=== PATIENT | female | born 1950 | race Caucasian/White ===

== ENCOUNTER 2016-09-16 07:50 | Day surgery (SDC) | payer OTHER, MEDICARE ==
[~2016-09-16 07:50] MED LIST: LIDOCAINE 1% 5 ML SDV ID PRN; LIDOCAINE 1% 5 ML SDV ONE; LR 1,000 ML IV ONE; SILVER NITRATE APPLICATOR 1 APPL TP ONE
[2016-09-16] MEDS ORDERED: MIDAZOLAM 2 MG/2 ML VIAL ONE (10:16)
[2016-09-16] MEDS ORDERED: fentaNYL 100 MCG/2 ML INJ ONE (10:22)
[2016-09-16] MEDS ORDERED: ONDANSETRON 4 MG/2 ML VIAL ONE (10:24)
[2016-09-16] MEDS ORDERED: ESMOLOL HCL 100 MG/10 ML VIAL IV ONE (10:48)
--- NOTE | 2016-09-16 15:48 | GOP ---
[f rep st] OPERATIVE REPORT DATE OF OPERATION: 09/16/2016 SURGEON: Sandhya Crain MD ANESTHESIA: General with LMA. ANESTHESIOLOGIST: Darrius Fan PREOPERATIVE DIAGNOSIS: 1. Postmenopausal bleeding. 2. Thickened endometrial stripe suggestive of endometrial polyp. POSTOPERATIVE DIAGNOSIS: Endometrial fibroids. PROCEDURE PERFORMED: Diagnostic hysteroscopy with hysteroscopic resection of uterine fibroids. FINDINGS: There were 3 very prominent fibroids, 1 arising from the posterior fundal wall, 1 from the left uterine wall, and 1 from the fundal wall of the uterus. They each measured about 1 cm. ESTIMATED BLOOD LOSS: Minimal. INDICATIONS FOR PROCEDURE: Patient is a 65-year-old, who has had problematic postmenopausal bleeding, and was on hormone therapy and stopped it, but continues to have bleeding. Ultrasound shows several submucosal filling defects that appear to be polyps, and patient desires definitive treatment. DESCRIPTION OF PROCEDURE: With informed consent signed, patient taken to the operating room and placed under general anesthesia without complication. Tenaculum placed on the anterior lip of the cervix and cervix dilated up to 9.5 mm. Hysteroscope placed using normal saline as the filling medium, and a [employer] Tru[employer] placed into the uterine cavity with morcellation done of the 3 very prominent fibroids. Once it was felt that they had been morcellated down to the submucosa, the hysteroscope was removed and hemostasis was noted. Net fluid deficit was less than 50 cc. Patient placed in supine position, awakened in the operating room, taken to the recovery room in stable condition, tolerating the procedure well. COMPLICATIONS: None. /[id number]/MODL MTDD
== END 2016-09-16 13:35 | disposition home or self-care (01) ==
LOC: FSGY 07:50 → EEVIPCON 09:45 → FSGY 13:35
PROVIDERS: ATTEND Obstetrics & Gynecology Gynecology
PROC: 0UC98ZZ Extirpation of Matter from Uterus, Via Natural or Artificial Opening Endoscopic (ICD-10-PCS; principal; 2016-09-16 09:45)
DX: N95.0 Postmenopausal bleeding (principal); D25.9 Leiomyoma of uterus, unspecified; E03.9 Hypothyroidism, unspecified; F41.9 Anxiety disorder, unspecified; F32.9 Major depressive disorder, single episode, unspecified
CPT/HCPCS: 58561; C1782; J2250; J2405; J3010

== ENCOUNTER → 2016-10-30 | Outpatient (CLI) | payer OTHER, MEDICARE | LOC: BMCIMAGING 16:44 | PROVIDERS: ATTEND Family Medicine | DX: R05 Cough (principal) ==

== ENCOUNTER → 2016-12-03 | Outpatient (CLI) | payer OTHER, MEDICARE | LOC: BMCIMAGING 11:12 | PROVIDERS: ATTEND Internal Medicine | DX: Z13.820 Encounter for screening for osteoporosis (principal); M85.80 Other specified disorders of bone density and structure, unspecified site; E03.9 Hypothyroidism, unspecified ==

== ENCOUNTER → 2017-12-03 | Outpatient (CLI) | payer OTHER, MEDICARE | LOC: BMCIMAGING 12:43 | PROVIDERS: ATTEND Internal Medicine | DX: Z12.31 Encounter for screening mammogram for malignant neoplasm of breast (principal) ==

== ENCOUNTER → 2017-12-10 | Outpatient (CLI) | payer OTHER, MEDICARE | LOC: BMCIMAGING 10:58 | PROVIDERS: ATTEND Internal Medicine | DX: N63.12 Unspecified lump in the right breast, upper inner quadrant (principal) ==

== ENCOUNTER → 2018-12-09 | Outpatient (CLI) | payer OTHER, MEDICARE | LOC: BMCIMAGING 14:12 | PROVIDERS: ATTEND Internal Medicine | DX: Z12.31 Encounter for screening mammogram for malignant neoplasm of breast (principal) ==